=== PATIENT | male | born 1965 | race Caucasian/White ===

== ENCOUNTER 2016-03-15 09:34 | Day surgery (SDC) | payer OTHER ==
[2016-03-15 09:39] VITALS: TEMP 99
--- NOTE | 2016-03-15 09:59 | CPEKG ---
Heart Rate: 62 RR Interval: 968 P-R Interval: 200 QRSD Interval: 90 QT Interval: 396 QTC Interval: 402 P [place]: 57 QRS [place]: -1 T Wave [place]: 40 EKG Severity - ABNORMAL ECG - EKG Impression: SINUS RHYTHM EKG Impression: PROBABLE LEFT ATRIAL ABNORMALITY EKG Impression: NONSPECIFIC T ABNORMALITIES, LATERAL LEADS Electronically Signed By: Cherise Hernandez 15-Mar-2016 15:19:13
[2016-03-15] MEDS ORDERED: ASPIRIN 81 MG CHEWABLE TAB PO ONE (10:23)
[2016-03-15 10:27] VITALS: O2SAT 96
[2016-03-15 10:28] LABS: % IMMATURE GRANULYOCYTES 0.9 % (0.0-1.1); ABSOLUTE IMMATURE GRANULOCYTES 0.04 10^3/uL (0.00-0.10); ADD DIFF? NO; ADD MORPH? NO; ADD SCAN? NO; ATYPICAL LYMPHOCYTE FLAG 0 (0-99); FRAGMENT RBC FLAG 0 (0-99); HEMATOCRIT 46.1 % (40.0-51.0); HEMOGLOBIN 16.3 g/dL (13.7-17.5); LEFT SHIFT FLG 0 (0-99); LIPEMIA HEMOLYSIS FLAG 90 (0-99); MEAN CELL HEMOGLOBIN 33.5 pg (27.9-34.1); MEAN CELL HEMOGLOBIN CONCENTR. 35.4 g/dL (32.4-36.7); MEAN CELL VOLUME 94.7 fL (81.5-99.8); MEAN PLATELET VOLUME 8.9 fL (8.7-11.7); PLATELET CLUMPS FLAG 20 (0-99); PLATELET COUNT 263 10^3/uL (150-400); RED BLOOD CELL COUNT 4.87 10^6/uL (4.40-6.38); RED CELL DISTRIBUTION WIDTH 12.5 % (11.5-15.2)
--- NOTE | 2016-03-15 10:28 | EDPHY ---
H & P Time Seen by Provider: 03/15/16 09:59 HPI/ROS: CHIEF COMPLAINT: chest pain HISTORY OF PRESENT ILLNESS: Patient is a 50-year-old male with no past cardiac history presents emergency department left-sided chest pain. The pain has been persistent and consistent for the past 5-7 days. Is on the left side under his breast. It does not radiate. No nausea or vomiting. No shortness of breath or diaphoresis. No fevers or chills. No cough. Patient has no leg pain or swelling. The patient does travel regularly for work. REVIEW OF SYSTEMS: My complete review of systems is negative except as mentioned in the HPI. Past Medical/Surgical History: Attention deficit hyperactivity disorder Past surgical history: Left hip replacement Social history: Denies drugs or alcohol. The patient does not smoke. Family history: The patient father had a bypass surgery at 54. Smoking Status: Never smoked Physical Exam: Vitals noted GENERAL: Well-appearing, in no acute distress, alert. Anxious appearing. HEENT: Eyes normal to inspection, normal pharynx, no signs of dehydration. NECK: No thyromegaly, no lymphadenopathy, supple. RESPIRATORY: Clear to auscultation bilaterally, no rales, rhonchi or wheezing. CVS: Regular rate and rhythm, no rubs, murmurs, or gallops. ABDOMEN: Soft, nontender, nondistended, no organomegaly. BACK: Normal to inspection, no CVA tenderness. SKIN: Normal color, no rash, warm, dry. No pallor. EXTREMITIES: No pedal edema, no calf tenderness, no Homans sign or cords, no joint swelling. NEURO/PSYCH: Alert and oriented x3, normal mood and affect, normal motor sensory exam. Constitutional: Initial Vital Signs Temperature (C) 37.2 C 03/15/16 09:37 Heart Rate 74 03/15/16 09:37 Respiratory Rate 16 03/15/16 09:37 Blood Pressure 157/88 H 03/15/16 09:37 O2 Sat (%) 97 03/15/16 09:37 O2 Delivery Mode Room Air Allergies/Adverse Reactions: No Known Allergies Allergy (Unverified 04/15/09 22:15) Home Medications: Medication Instructions Recorded Herbals/Supplements -Info Only 1 each PO DAILY 03/15/16 Methylphenidate HCl [RITALIN LA] 20 mg PO DAILY 03/15/16 Multivitamins [Multivitamin (*)] 1 each PO DAILY 03/15/16 [place]-3 Fatty Acids [Fish Oil 1000 1,000 mg PO DAILY 03/15/16 mg (*)] Medical Decision Making ED Course/Re-evaluation: In the emergency department I discussed possible etiologies with the patient. I answered all his questions. An IV was placed. Laboratory studies, EKG and chest x-ray were ordered. EKG shows normal sinus rhythm, normal rate, normal axis, normal intervals. S1, q3, flattened T in 3. Flipped T-waves in V5 and V6. This EKG is abnormal as interpreted by me. Reviewed the patient's laboratory studies. Chemistry and CBC were normal. Troponin was negative. D-dimer negative. I discussed the results with the patient. I discussed the case with Dr. Matias Leiva. He came to the emergency department to evaluate the patient. Patient will be admitted to Dr. Leiva. Plan is for the patient to go to cardiac catheterization lab later this afternoon. Differential Diagnosis: My differential includes but is not limited to ACS, acute PR, pulmonary embolus , aortic aneurysm, dissection, pneumonia, pneumothorax, mass, malignancy, pericarditis, myocarditis, costochondritis, pleurisy - Data Points Laboratory Results: Laboratory Results 03/15/16 09:58 03/15/16 09:58 03/15/16 09:58 WBC 4.65 10^3/uL (3.80-9.50) RBC 4.87 10^6/uL (4.40-6.38) Hgb 16.3 g/dL (13.7-17.5) Hct 46.1 % (40.0-51.0) MCV 94.7 fL (81.5-99.8) MCH 33.5 pg (27.9-34.1) MCHC 35.4 g/dL (32.4-36.7) RDW 12.5 % (11.5-15.2) Plt Count 263 10^3/uL (150-400) MPV 8.9 fL (8.7-11.7) Neut % (Auto) 55.8 % (39.3-74.2) Lymph % (Auto) 30.3 % (15.0-45.0) [place] % (Auto) 9.7 % (4.5-13.0) Eos % (Auto) 2.4 % (0.6-7.6) Baso % (Auto) 0.9 % (0.3-1.7) Nucleat RBC Rel Count 0.0 % (0.0-0.2) Absolute Neuts (auto) 2.60 10^3/uL (1.70-6.50) Absolute Lymphs (auto) 1.41 10^3/uL (1.00-3.00) Absolute Monos (auto) 0.45 10^3/uL (0.30-0.80) Absolute Eos (auto) 0.11 10^3/uL (0.03-0.40) Absolute Basos (auto) 0.04 10^3/uL (0.02-0.10) Absolute Nucleated RBC 0.00 10^3/uL (0-0.01) Immature Gran % 0.9 % (0.0-1.1) Immature Gran # 0.04 10^3/uL (0.00-0.10) D-Dimer < 0.27 ug/mLFEU (0.00-0.50) Sodium 139 mEq/L (134-144) Potassium 4.5 mEq/L (3.5-5.2) Chloride 103 mEq/L (97-110) Carbon Dioxide 27 mEq/l (22-31) Anion Gap 9 mEq/L (8-16) BUN 12 mg/dL (7-23) Creatinine 0.8 mg/dL (0.7-1.3) Estimated GFR > 60 Glucose 92 mg/dL (70-100) Calcium 9.6 mg/dL (8.5-10.4) Troponin I < 0.012 ng/mL (0-0.034) Medications Given: Discontinued Medications Aspirin (Aspirin) 324 mg PO EDNOW ONE Stop: 03/15/16 10:24 Last Admin: 03/15/16 10:32 Dose: 324 mg Sodium Chloride (Ns) 1,000 mls @ 0 mls/hr IV ONCE ONE PRN Reason: Wide Open Stop: 03/15/16 13:06 Last Admin: 03/15/16 13:07 Dose: 1,000 mls Departure - Departure Disposition: Home, Routine, Self-Care Clinical Impression: Chest pain Qualifiers: Chest pain type: precordial pain Qualifier Code: (R07.2) Precordial pain Condition: Good
[2016-03-15 10:38] LABS: ANION GAP 9 mEq/L (8-16); CALCIUM 9.6 mg/dL (8.5-10.4); CARBON DIOXIDE 27 mEq/l (22-31); CHLORIDE 103 mEq/L (97-110); CREATININE 0.8 mg/dL (0.7-1.3); GLOMERULAR FILTRATION RATE > 60; GLUCOSE 92 mg/dL (70-100); POTASSIUM 4.5 mEq/L (3.5-5.2); SODIUM 139 mEq/L (134-144)
[2016-03-15 10:49] LABS: TROPONIN I < 0.012 ng/mL (0-0.034)
--- NOTE | 2016-03-15 10:57 | DX ---
PA and lateral chest History: Chest tightness for one week. Comparison: PA and lateral chest July 27, 2010. Findings: The lungs are clear. There is no pneumothorax or pleural effusion. The heart and pulmona ry vasculature are normal. The bones are normal. Impression: Normal chest.
[2016-03-15 12:30] VITALS: RESP 18
[2016-03-15] MEDS ORDERED: NS 1,000 ML IV ONE (13:05)
--- NOTE | 2016-03-15 13:31 | PDGENHP ---
History and Physical - Chief Complaint Intermittent, left-sided chest discomfort - History of Present Illness HPI: Wang is a 50 year old man with a history of coronary artery disease on the basis of a positive calcium score, hyperlipidemia, obstructive sleep apnea, ADHD, anxiety and depression and a paternal family history significant for premature coronary artery disease (his father requried CABG x 5 at the age of 54 years). The patient presents to the emergency department for left-sided chest discomfort (described as a pinching type sensation) that has been intermittent over the past 5 days. Although the discomfort is not exacerbated by exercise, it has progessively become worse over this period of time. Wang has experienced an increase in his level of stress related to his work. When the pain began, he became concerned about his heart and decided to visit the ER given his family history. The patient denies shortness of breath, dizziness, lightheadedness, diaphoresis or other cardiac symptoms. Current Medications: 1. Ritalin oral at dose of 20 mg daily 2. aspirin 81 mg oral tablet, chewable 3. Fish Oil 340-1,000 mg oral capsule 4. Multivitamin oral Assessment/Plan: The patient presents with intermittent, left-sided chest discomfort and a strong family history of premature cardiovascular disease. His resting EKG is abnormal and may be suggestive of ischemia (abnormal ST T wave contours -- may be suggestive of anterior ischemia, T wave inversion in v4,v5, v6). In addition, he had a recent EBCT scan that revealed calcified plaque confined to the LAD (Agatston score of 80, which places him between the 75th and 90th percentile when standardized for age and sex) He was hypertensive at ~ 170/90 mmHg when I saw him today. I discussed the options with the patient including MPI study vs. cardiac catheterization. I explained the risks, expected benefits and potential consequences of each course of action with the patient. I believe cardiac catheterization is warranted given his symptoms suggestive of CCS IV angina, abnormal EKG and family history. I have explained the risks, expected benefits and potential complications of this course of action with the patient and he wishes to proceed as planned. Some potential benefits include angina relief, definitive assesssment of coronary anatomy and LV function. Complications have been described as , permanent and disabling stroke, heart attack, abnormal heart rhythm, bleeding and damage to blood vessels resulting in tissue or limb loss. Wang would like to proceed as planned. The patient ate breakfast at ~08:00 this morning. History Information - Allergies/Home Medication List Allergies/Adverse Reactions: No Known Allergies Allergy (Unverified 04/15/09 22:15) Home Medications: Herbals/Supplements -Info Only 1 each PO DAILY 03/15/16 [Last Taken Unknown] Methylphenidate HCl [RITALIN LA] 20 mg PO DAILY 03/15/16 [Last Taken 03/15/16] Multivitamins [Multivitamin (*)] 1 each PO DAILY 03/15/16 [Last Taken Unknown] [place]-3 Fatty Acids [Fish Oil 1000 mg (*)] 1,000 mg PO DAILY 03/15/16 [Last Taken Unknown] I have personally reviewed and updated: family history, medical history, social history, surgical history - Past Medical History coronary artery disease, hyperlipidemia Additional medical history: Obstructive sleep apnea, anxiety, depression, erectile dysfunction, ADHD - Surgical History Additional surgical history: ACL reconstruction, appendectomy, hip resurfacing - Family History Positive for: father with history of CAD younger than 55, female first degree with premature CAD - Social History Smoking Status: Never smoked Review of Systems Constitutional: Reports: no symptoms EENMT: Reports: no symptoms Cardiac: Reports: chest pain Respiratory: Reports: no symptoms Gastrointestinal: Reports: no symptoms Genitourinary: Reports: no symptoms Muscolosketal: Reports: no symptoms Skin: Reports: no symptoms Neurological: Reports: anxiety Hematologic/Lymphatic: Reports: no symptoms Immunologic/Allergy: Reports: no symptoms Physical Exam Temp Pulse Resp BP Pulse Ox 37.2 C 62 18 167/106 H 96 03/15/16 09:37 03/15/16 12:29 03/15/16 12:29 03/15/16 12:29 03/15/16 12:29 Constitutional: appears nourished Eyes: PERRL, anicteric sclera, EOMI Cardiovascular: regular rate and rhythym, no murmur, rub, or gallop, No edema Respiratory: no respiratory distress, no rales or rhonchi, clear to auscultation Gastrointestinal: normoactive bowel sounds Skin: warm, normal color Musculoskeletal: full muscle strength Neurologic: AAOx3 Psychiatric: interacting appropriately, not encephalopathic, thought process linear, anxious Lymph, Heme, Immunologic: no cervical LAD Lab Data & Imaging Review 03/15/16 09:58 03/15/16 09:58 WBC 4.65 10^3/uL (3.80-9.50) 03/15/16 09:58 RBC 4.87 10^6/uL (4.40-6.38) 03/15/16 09:58 Hgb 16.3 g/dL (13.7-17.5) 03/15/16 09:58 Hct 46.1 % (40.0-51.0) 03/15/16 09:58 MCV 94.7 fL (81.5-99.8) 03/15/16 09:58 MCH 33.5 pg (27.9-34.1) 03/15/16 09:58 MCHC 35.4 g/dL (32.4-36.7) 03/15/16 09:58 RDW 12.5 % (11.5-15.2) 03/15/16 09:58 Plt Count 263 10^3/uL (150-400) 03/15/16 09:58 MPV 8.9 fL (8.7-11.7) 03/15/16 09:58 Neut % (Auto) 55.8 % (39.3-74.2) 03/15/16 09:58 Lymph % (Auto) 30.3 % (15.0-45.0) 03/15/16 09:58 [place] % (Auto) 9.7 % (4.5-13.0) 03/15/16 09:58 Eos % (Auto) 2.4 % (0.6-7.6) 03/15/16 09:58 Baso % (Auto) 0.9 % (0.3-1.7) 03/15/16 09:58 Nucleat RBC Rel Count 0.0 % (0.0-0.2) 03/15/16 09:58 Absolute Neuts (auto) 2.60 10^3/uL (1.70-6.50) 03/15/16 09:58 Absolute Lymphs (auto) 1.41 10^3/uL (1.00-3.00) 03/15/16 09:58 Absolute Monos (auto) 0.45 10^3/uL (0.30-0.80) 03/15/16 09:58 Absolute Eos (auto) 0.11 10^3/uL (0.03-0.40) 03/15/16 09:58 Absolute Basos (auto) 0.04 10^3/uL (0.02-0.10) 03/15/16 09:58 Absolute Nucleated RBC 0.00 10^3/uL (0-0.01) 03/15/16 09:58 Immature Gran % 0.9 % (0.0-1.1) 03/15/16 09:58 Immature Gran # 0.04 10^3/uL (0.00-0.10) 03/15/16 09:58 D-Dimer < 0.27 ug/mLFEU (0.00-0.50) 03/15/16 09:58 Sodium 139 mEq/L (134-144) 03/15/16 09:58 Potassium 4.5 mEq/L (3.5-5.2) 03/15/16 09:58 Chloride 103 mEq/L (97-110) 03/15/16 09:58 Carbon Dioxide 27 mEq/l (22-31) 03/15/16 09:58 Anion Gap 9 mEq/L (8-16) 03/15/16 09:58 BUN 12 mg/dL (7-23) 03/15/16 09:58 Creatinine 0.8 mg/dL (0.7-1.3) 03/15/16 09:58 Estimated GFR > 60 03/15/16 09:58 Glucose 92 mg/dL (70-100) 03/15/16 09:58 Calcium 9.6 mg/dL (8.5-10.4) 03/15/16 09:58 Troponin I < 0.012 ng/mL (0-0.034) 03/15/16 09:58 EKG Interpretation: Positive for: LVH (borderline voltage, increased septal voltage in v3), normal sinsus rhythm, other (abnomal ST T wave suggestive of ischemia), T waves inversion (v4, v5, v6) Assessment & Plan Assessment: Chest pain (Acute)
[2016-03-15 13:39] VITALS: BP 142/92; PULSE 64
[2016-03-15] MEDS ORDERED: FAMOTIDINE 20 MG TAB ONE (14:05)
[2016-03-15] MEDS ORDERED: DIAZEPAM 5 MG TAB ONE (14:05)
[2016-03-15] MEDS ORDERED: diphenhydrAMINE 25 MG CAP PO ONE (14:05)
[2016-03-15] MEDS ORDERED: MIDAZOLAM 2 MG/2 ML VIAL ONE ×3 (14:33→15:03)
[2016-03-15] MEDS ORDERED: LIDOCAINE 1% 30 ML SDV ONE (14:33)
[2016-03-15] MEDS ORDERED: HEPARIN 10,000 UNIT/10 ML MDV ONE (14:33)
[2016-03-15] MEDS ORDERED: fentaNYL 100 MCG/2 ML INJ ONE ×2 (14:33→14:54)
[2016-03-15] MEDS ORDERED: VERAPAMIL 5 MG/2 ML VIAL ONE (14:33)
[2016-03-15] MEDS ORDERED: IOPAMIDOL (ISOVUE-370) 150 ML BTL IV ONE ×2 (14:34→15:03)
--- NOTE | 2016-03-15 15:10 | PDDXCAT ---
Diagnostic Cath Note - . Date: 03/15/16 Groundman: Abbie Indication: other (New onset CCS IV angina, abnormal EKG, strong family history of premature cardiovascular disease) - Procedure Access: left wrist (A plethysmography trace assisted Talha's Test was used to document dual artery supply to the hand and index finger prior to access.) Procedure: left heart catheterization, coronary angiography, left ventriculogram - Materials Left Heart Cath size: 5F Left Heart Cath materials: JL3.5, JR4.0, pigtail - Findings-Left Heart Catheterization LM: The left main is ~6 mm in size and trifurcates into an LAD, ramus and circumflex system. LAD: 4 mm in size. Maximal luminal stenosis of 20% in the mid LAD with FAYE III flow. There is distreaming in the proximal LAD. LCX: 3.5 mm in size without evidence of flow-limiting disease and FAYE III flow throughout. RCA: Dominant (gives rise to PDA and PLV branches) without evidence of flow- limiting disease and FAYE III flow throughout. Ramus: 3 mm in size. There is no evidence of flow-limiting disease with FAYE III flow throughout. EDP: 20 mmHg. LVEF: 65% Wall motion: No wall motion abnormalities were identified on LVG. The visualized protion of the thoracic aorta revealed three sinuses of Valsalva. There was no evidence of aneurysm or dissection. Complications: None Estimated blood loss: <50ml Closure method: TR Band Assessment: Non flow-limiting coronary artery disease with normal ejection fraction at 65% and no wall motion abnormalities on LVG. Maximal luminal stenosis of 20% in the LAD with FAYE III flow. There was evidence of distreaming in the proximal LAD, which has sometimes been associated with endothelial dysfunction or plaque rupture. The patient's non-obstructive coronary artery disease should be managed medically, including daily statin therapy (specifically with Rosuvastatin at 20 mg daily, ideally, to achieve a non-HDL cholesterol <100 mg/dL) and ASA at 325 mg daily for 30 days followed by 162 mg daily thereafter. I would also like to place the patient on Irbesartan at 150 mg daily given his intermittent hypertension. He will need to follow up with preclinic lipids and liver enzymes 6-8 after starting the medication. I discussed the risks and benefits of these medications with the patient and his at length. I will also order an hsCRP. Finally, I have ordered an echocardiogram given the suggestion of spike and dome pattern on LV pressures and voltage suggestive of asymetric septal hypertrophy. Patient Problems: Problems Problem Status Diagnosed Chest pain Acute
--- NOTE | 2016-03-16 09:10 | ECHO ---
[id number] + + [id number] : : [place] [id number] : : [phone] + + Adult Echocardiographic Report + + :Name: ESMER MEREDITH HStudy Date: 03/15/2016 05:42 PM : : Hospital Admission Number: [id number] : :: 1965 Gender: Male Height: 71 in : :Age: 50 yrs Race: WH Weight: 188 lb : :Reason For Study: Eval LV Fx : : BSA: 2.1 meters2: :History: Post Cath, Chest Pain : + + MMode/2D Measurements & Calculations IVSd: 1.0 cm LVIDd: 5.1 cm FS: 46.7 % Ao root diam: 3.6 cm LVPWd: 1.0 cm LVIDs: 2.7 cm EDV(Teich): 126.6 ml ACS: 2.1 cm ESV(Teich): 28.1 ml EF(Teich): 77.8 % Normal Measurement Values: + + :LVIDd (3.5-5.7cm) IVSd (0.6-1.1cm) LVPWd (0.6-1.1cm) Aortic Root (2.0-3.7cm)Left Atrium (1.5-4.0cm): :LV Vol(d) (76-115ml) LV Vol(s) (29-48ml) Ejec Fraction (50-65%)PV Bud (0.6- 1.2m/s) TV Bud (0.4-1.0m/s) : :MV E Bud (0.8-1.0m/s)MV A Bud (0.3-1.0m/s)LVOT Bud (0.7-1.2m/s) Asc Ao Bud ( 0.9-1.8m/s) : + + Doppler Measurements & Calculations MV E max bud: Ao V2 max: LV V1 max: PA V2 max: 68.1 cm/sec 120.8 cm/sec 95.8 cm/sec 73.3 cm/sec MV A max bud: Ao max P.8 mmHg LV V1 max PG: PA max P.5 cm/sec 3.7 mmHg 2.1 mmHg MV E/A: 1.6 Left Ventricle The left ventricle is normal in size and function. There is normal left ventricular wall thickness. The left ventricular ejection fraction is normal. Ejection Fraction = 78%. The left ventricular wall motion is normal. No regional wall motion abnormalities noted. Right Ventricle The right ventricle is normal in size and function. Atria The left atrial size is normal. Right atrial size is normal. Mitral Valve The mitral valve is normal in structure and function. There is no mitral valve stenosis. There is no mitral regurgitation noted. Tricuspid Valve Normal tricuspid valve. There is no tricuspid valve prolapse. There is trace tricuspid regurgitation. Aortic Valve The aortic valve is normal in structure and function. There is no aortic stenosis. There is no aortic insufficiency. Pulmonic Valve The pulmonic valve is normal in structure and function. There is no pulmonic valvular regurgitation. Great Vessels The aortic root is normal size. Pericardium/Pleural There is no pericardial effusion. Conclusion A complete two-dimensional transthoracic echocardiogram was performed (2D, M-mode, Doppler and color flow Doppler). The left ventricle is normal in size and function. The left ventricular ejection fraction is normal. Ejection Fraction = 78%. The left ventricular wall motion is normal. The left atrial size is normal. The mitral valve is normal in structure and function. Normal tricuspid valve There is trace tricuspid regurgitation. The aortic valve is normal in structure and function. The pulmonic valve is normal in structure and function. The aortic root is normal size. There is no pericardial effusion. Final Reading Physician: Barbara Peguero signed on 03/16/2016 09:08 AM Ordering Physician: Matias Leiva Performed By: Sergio Lewis, RANDYCS
== END 2016-03-15 18:45 | disposition home or self-care (01) ==
LOC: UNDOADMOB 12:11 → FCATH 12:11
PROVIDERS: ATTEND Internal Medicine Cardiovascular Disease
PROC: B2111ZZ Fluoroscopy of Multiple Coronary Arteries using Low Osmolar Contrast (ICD-10-PCS; principal; 2016-03-15)
PROC: B2151ZZ Fluoroscopy of Left Heart using Low Osmolar Contrast (ICD-10-PCS; principal; 2016-03-15)
PROC: 4A023N7 Measurement of Cardiac Sampling and Pressure, Left Heart, Percutaneous Approach (ICD-10-PCS; principal; 2016-03-15)
DX: I25.10 Atherosclerotic heart disease of native coronary artery without angina pectoris (principal); E78.5 Hyperlipidemia, unspecified; G47.33 Obstructive sleep apnea (adult) (pediatric); F41.8 Other specified anxiety disorders; F90.0 Attention-deficit hyperactivity disorder, predominantly inattentive type; Z82.49 Family history of ischemic heart disease and other diseases of the circulatory system; Z96.642 Presence of left artificial hip joint
CPT/HCPCS: J1644; J2250; J3010; Q9967